=== PATIENT | female | born 1960 | race Caucasian/White ===

== ENCOUNTER 2016-10-20 15:17 | Emergency (ER) | payer OTHER ==
[2016-10-20 15:22] VITALS: BP 113/69; PULSE 68; RESP 16; TEMP 98
[2016-10-20] MEDS ORDERED: TOPICAL SKIN ADHESIVE 1 EACH AMP TOPICAL ONE (15:27)
[2016-10-20] MEDS ORDERED: DIPH,PERTUS(ACELL)TETVAC-LF 0.5 ML VIAL IM ONE (15:27)
--- NOTE | 2016-10-20 15:29 | ED ---
Wound/Laceration HPI - General Chief Complaint: Wound/Laceration Stated Complaint: L hand laceration Time Seen by Provider: 10/20/16 15:22 Source: patient, RN notes reviewed Mode of arrival: ambulatory Limitations: no limitations - History of Present Illness Initial Comments: 56-year-old female presents emergency Department chief complaint of laceration. Patient states she was moving a mandolin and states that she caught the edge of her finger. Patient states that there has been some bleeding but bleeding has stopped. She is unsure last tetanus was. Patient denies any paresthesias no decreased range of motion. - Related Data Previous Rx's Medication Instructions Recorded Amoxicillin 500 mg PO Q8H 10 Days 12/23/14 Allergies Allergy/AdvReac Type Severity Reaction Status Date / Time codeine Allergy Hallucinati Verified 12/23/14 12:11 ons Influenza Virus Vaccines Allergy Rash/Hives Verified 10/20/16 15:22 Review of Systems ROS Statement: Those systems with pertinent positive or pertinent negative responses have been documented in the HPI. ROS Other: All systems not noted in ROS Statement are negative. Past Medical History Past Medical History: Asthma Additional Past Medical History / Comment(s): hypoglycemia, MURMUR DX [email or web address], MILD LACTOSE INTOLERANCE CAN'T DRINK MILK History of Any Multi-Drug Resistant Organisms: None Reported Past Surgical History: Section, Tubal Ligation Additional Past Surgical History / Comment(s): WISDOM TEETH EXTRACTED. Past Anesthesia/Blood Transfusion Reactions: No Reported Reaction Additional Past Anesthesia/Blood Transfusion Reaction / Comment(s): CLAUSTERPHOBIC Past Psychological History: No Psychological Hx Reported Smoking Status: Former smoker Past Alcohol Use History: Rare Past Drug Use History: None Reported - Past Family History Father Family Medical History: Cancer Additional Family Medical History / Comment(s): BRAIN CANCER Mother Family Medical History: Dementia, Diabetes Mellitus, Hypertension Additional Family Medical History / Comment(s): SMALL VESSEL DISEASE. PTS GRANDMOTHER HAD DEMENTIA WELL General Exam Limitations: no limitations General appearance: alert, in no apparent distress Head exam: Present: atraumatic, normocephalic, normal inspection Respiratory exam: Present: normal lung sounds bilaterally. Absent: respiratory distress, wheezes, rales, rhonchi, stridor Cardiovascular Exam: Present: regular rate, normal rhythm, normal heart sounds. Absent: systolic murmur, diastolic murmur, rubs, gallop, clicks Extremities exam: Present: other (Left hand second digit there is a small 0.5 cm superficial laceration no active bleeding noted involvement) Course Vital Signs 10/20/16 15:19 Temperature 98 F Pulse Rate 68 Respiratory 16 Rate Blood Pressure 113/69 O2 Sat by Pulse 97 Oximetry Procedures - Procedures Initial comment: Laceration left hand third digit was thoroughly cleaned with saline, 2 months used to close the superficial laceration. This was wrapped return parameters were discussed. Disposition Clinical Impression: Finger laceration Disposition: HOME SELF-CARE Condition: Stable Instructions: Laceration (ED) Additional Instructions: Please return to the Emergency Department if symptoms worsen or any other concerns. Referrals: Shannan Guerra MD [Primary Care Provider] - 1-2 days Time of Disposition: 15:29
== END 2016-10-20 15:46 | disposition home or self-care (01) ==
LOC: EC 15:17
DX: S61.211A Laceration without foreign body of left index finger without damage to nail, initial encounter (principal); Z23 Encounter for immunization; Z88.5 Allergy status to narcotic agent; Z88.7 Allergy status to serum and vaccine; Z87.891 Personal history of nicotine dependence; W45.8XXA Other foreign body or object entering through skin, initial encounter; Y92.009 Unspecified place in unspecified non-institutional (private) residence as the place of occurrence of the external cause
CPT/HCPCS: 12001; 90471; 90715; 99282

== ENCOUNTER 2021-01-26 13:38 | Emergency (ER) | payer OTHER, MEDICARE ==
[2021-01-26 13:57] VITALS: BP 127/77; PULSE 76; TEMP 98.1
[2021-01-26] MEDS ORDERED: FLUORESCEIN STRIPS 1 MG STRIP RIGHT EYE STA (14:16)
[2021-01-26] MEDS ORDERED: PROPARACAINE 0.5% OPHTH DROPS 15 ML BTL RIGHT EYE STA (14:16)
--- NOTE | 2021-01-26 15:11 | ED ---
General Adult HPI - General Chief complaint: Eye Problems Stated complaint: vision problem Time Seen by Provider: 01/26/21 14:06 Source: patient, RN notes reviewed Mode of arrival: ambulatory Limitations: no limitations - History of Present Illness Initial comments: 60-year-old female with a past medical history of asthma presents to the emergency room for right eye floaters. Patient has had floaters in the right eye for 2 days now. States it started Wednesday when she bent down to put dog food and hit a pole. Patient states she started to see black dots and ribbons. Patient denies any other symptoms. Denies weakness or difficulty speaking or walking.Patient has no other complaints at this time including shortness of breath, chest pain, abdominal pain, nausea or vomiting, headache. - Related Data Previous Rx's Medication Instructions Recorded Amoxicillin 500 mg PO Q8H 10 Days capsule 12/23/14 Allergies Allergy/AdvReac Type Severity Reaction Status Date / Time codeine Allergy Hallucinati Verified 12/23/14 12:11 ons Influenza Virus Vaccines Allergy Rash/Hives Verified 10/20/16 15:22 Review of Systems ROS Statement: Those systems with pertinent positive or pertinent negative responses have been documented in the HPI. ROS Other: All systems not noted in ROS Statement are negative. Past Medical History Past Medical History: Asthma Additional Past Medical History / Comment(s): hypoglycemia, MURMUR DX [email or web address].UTI, MILD LACTOSE INTOLERANCE CAN'T DRINK MILK History of Any Multi-Drug Resistant Organisms: None Reported Past Surgical History: Section, Tubal Ligation Additional Past Surgical History / Comment(s): WISDOM TEETH EXTRACTED. Past Anesthesia/Blood Transfusion Reactions: No Reported Reaction Additional Past Anesthesia/Blood Transfusion Reaction / Comment(s): C LAUSTERPHOBIC Past Psychological History: No Psychological Hx Reported Smoking Status: Former smoker Past Alcohol Use History: Rare Past Drug Use History: None Reported - Past Family History Father Family Medical History: Cancer Additional Family Medical History / Comment(s): BRAIN CANCER Mother Family Medical History: Dementia, Diabetes Mellitus, Hypertension Additional Family Medical History / Comment(s): SMALL VESSEL DISEASE. PTS GRANDMOTHER HAD DEMENTIA WELL General Exam Limitations: no limitations General appearance: alert, in no apparent distress Head exam: Present: atraumatic Eye exam: Present: normal appearance, PERRL, EOMI. Absent: scleral icterus, conjunctival injection, periorbital swelling Expanded Eyelids: Normal Inspection: Bilateral Pupils: Regular, Round: Bilateral Sclera/Conjunctival: Normal Inspection: Bilateral Anterior chamber: Normal Inspection: Bilateral Posterior chamber: Deferred: Left, Normal Inspection: Right Visual acuity (R) = 20/: 30 Visual acuity (L) = 20/: 40 With correction: Yes IOP (R) in mmH IOP (L) in mmH IOP measured with: Tonopen ENT exam: Present: normal exam, mucous membranes moist Neck exam: Present: normal inspection, full ROM. Absent: tenderness Respiratory exam: Present: normal lung sounds bilaterally. Absent: respiratory distress, wheezes Cardiovascular Exam: Present: regular rate, normal rhythm, normal heart sounds Course Vital Signs 01/26/21 13:55 Temperature 98.1 F Pulse Rate 76 Respiratory 17 Rate Blood Pressure 127/77 O2 Sat by Pulse 99 Oximetry Medical Decision Making - Medical Decision Making HPI and physical exam as documented. EOMI and PERRLA. Visual holland intact. Visual acuity is 20/30 OD, 20/40 OS. The eye was stained with fluorescein stain of his nose with the Wood's lamp, no corneal defect. IOP of the right eye is 14 and IOP of the left is 18. I did discuss this case with Dr. Rivera. He would like to see patient tomorrow in the office. Patient will call first thing in the morning. She'll return here for any worsening symptoms. Disposition Clinical Impression: Floaters in visual field Disposition: HOME SELF-CARE Condition: Good Instructions (If sedation given, give patient instructions): Visual Floaters (ED) Additional Instructions: Please follow up with Dr. Schaeffer by calling the office first thing in the morning. If you have any worsening symptoms overnight return to the emergency room. Is patient prescribed a controlled substance at d/c from ED?: No Referrals: Shannan Guerra MD [Primary Care Provider] - 1-2 days Eric Schaeffer MD [STAFF PHYSICIAN] - 1-2 days Time of Disposition: 15:15
[2021-01-26 15:55] VITALS: RESP 18
== END 2021-01-26 15:56 | disposition home or self-care (01) ==
LOC: EC 13:38
DX: H43.391 Other vitreous opacities, right eye (principal); J45.909 Unspecified asthma, uncomplicated; Z88.5 Allergy status to narcotic agent; Z88.7 Allergy status to serum and vaccine; Z98.51 Tubal ligation status; Z87.891 Personal history of nicotine dependence
CPT/HCPCS: 99283

== ENCOUNTER → 2023-05-14 | Outpatient (CLI) | payer MEDICARE, OTHER ==
--- NOTE | 2023-05-18 22:06 | MM ---
Reason for Exam: Screening (asymptomatic). Last mammogram was performed 8 year(s) and 5 month(s) ago. Patient History: Menarche at age 13. First Full-Term at age 24. Postmenopausal. Patient has history of breast feeding. Paternal grandmother had breast cancer, age 60. Risk Values: Brenda 5 year model risk: 1.4%. NCI Lifetime model risk: 7.2%. Prior Study Comparison: 12/19/2004 Bilateral Diagnostic Mammogram, [facility]. 07/16/2005 Bilateral Diagnostic Mammogram, [facility]. 01/09/2010 Bilateral Screening Mammogram, [facility]. 04/06/2012 Bilateral Screening Mammogram, [facility]. 12/12/2014 Bilateral Screening Mammogram, [facility]. Tissue Density: The breast tissue is heterogeneously dense. This may lower the sensitivity of mammography. Findings: Analyzed By CAD. Underlying fluctuating chronic nodularity indicates a benign pattern. There is no suspicious group of microcalcifications or new suspicious mass in either breast. Overall Assessment: Benign, BI-RAD 2 Management: Screening Mammogram of both breasts in 1 year. . Patient should continue monthly self-breast exams. A clinical breast exam by your physician is recommended on an annual basis. This exam should not preclude additional follow-up of suspicious palpable abnormalities. Note on Brenda scores and lifetime risk: 1. A Brenda score greater than 3% is considered moderate risk. If this is the case, consider specialist referral to assess eligibility for a risk reducing agent. 2. If overall lifetime risk for the development of breast cancer is 20% or higher, the patient may qualify for future screening with alternating mammogram and breast MRI. Electronically signed and approved by: Jojo Heart M.D. Radiologist
== END | disposition home or self-care (01) ==
LOC: RADMAMWWP 10:20
PROVIDERS: ATTEND Family Medicine
DX: Z12.31 Encounter for screening mammogram for malignant neoplasm of breast (principal); Z80.3 Family history of malignant neoplasm of breast; Z78.0 Asymptomatic menopausal state
CPT/HCPCS: 77063; 77067

== ENCOUNTER → 2024-06-19 | Outpatient (CLI) | payer MEDICARE, OTHER ==
--- NOTE | 2024-06-19 14:53 | MM ---
Reason for Exam: Screening (asymptomatic). Last mammogram was performed 1 year(s) and 1 month(s) ago. Patient History: Menarche at age 13. First Full-Term at age 24. Postmenopausal. Patient has history of breast feeding. Paternal grandmother had breast cancer, age 60. Risk Values: Brenda 5 year model risk: 1.5%. NCI Lifetime model risk: 6.8%. Prior Study Comparison: 04/06/2012 Bilateral Screening Mammogram, [facility]. 12/12/2014 Bilateral Screening Mammogram, [facility]. 05/14/2023 Bilateral MG 3D screening mammo w/cad, [facility]. Tissue Density: The breasts are heterogeneously dense, which may obscure small masses. Findings: Analyzed By CAD. Bilateral stable nodules. There are bilateral increased or new nodules. Benign-appearing calcification. Overall Assessment: Incomplete: need additional imaging evaluation, BI-RAD 0 Management: Diagnostic Breast Ultrasound of both breasts. . Patient should continue monthly self-breast exams. A clinical breast exam by your physician is recommended on an annual basis. This exam should not preclude additional follow-up of suspicious palpable abnormalities. Note on Brenda scores and lifetime risk: 1. A Brenda score greater than 3% is considered moderate risk. If this is the case, consider specialist referral to assess eligibility for a risk reducing agent. 2. If overall lifetime risk for the development of breast cancer is 20% or higher, the patient may qualify for future screening with alternating mammogram and breast MRI. [facility], , 06/19/2024 2:49 PM. Electronically signed and approved by: Livan Loomis M.D. Radiologis
== END | disposition home or self-care (01) ==
LOC: RADMAMWWP 14:19
PROVIDERS: ATTEND Family Medicine
DX: Z12.31 Encounter for screening mammogram for malignant neoplasm of breast (principal); R92.333 Mammographic heterogeneous density, bilateral breasts; Z78.0 Asymptomatic menopausal state; Z80.3 Family history of malignant neoplasm of breast
CPT/HCPCS: 77063; 77067

== ENCOUNTER → 2024-06-19 | Outpatient (CLI) | payer MEDICARE, OTHER ==
--- NOTE | 2024-06-19 14:28 | CT ---
EXAMINATION TYPE: CT brain wo con CT DLP: 1064.30 mGycm, Automated exposure control for dose reduction was used. DATE OF EXAM: 06/19/2024 2:02 PM COMPARISON: None. CLINICAL INDICATION:Female, 64 years old with history of H93.13 TINNITUS, BILATERAL, BILATERAL TINNIT US TECHNIQUE: Brain: Multiple axial CT images of the brain were obtained without IV contrast. . Coronal and sagitta l reformats reviewed. FINDINGS: Brain: Extra-axial spaces: No abnormal extra-axial fluid collections. Ventricular system: Within normal limits Cerebral parenchyma: No acute intraparenchymal hemorrhage or mass effect. The jay-white junction is well differentiated. Cerebellum: Unremarkable. Mass effect: No evidence of midline shift. Intracranial vasculature: unremarkable Soft tissues: Normal. Calvarium/osseous structures: No depressed skull fracture. Paranasal sinuses and mastoid air cells: Clear. The external and internal auditory canals appear unre markable. The middle ears are nonopacified. No obvious abnormality. Visualized orbits: Orbital contents are intact. IMPRESSION: No acute intracranial process. [facility], , 06/19/2024 2:25 PM
== END | disposition home or self-care (01) ==
LOC: RADCTMAIN 13:04
PROVIDERS: ATTEND Family Medicine
DX: H93.13 Tinnitus, bilateral (principal)
CPT/HCPCS: 70450

== ENCOUNTER → 2024-06-22 | Outpatient (CLI) | payer MEDICARE, OTHER ==
--- NOTE | 2024-06-22 13:57 | CT ---
EXAMINATION TYPE: CT iac wo con DATE OF EXAM: 06/22/2024 COMPARISON: None CLINICAL INDICATION: Female, 64 years old with history of H93.13 tinnitus; PHH, TINNITUS TECHNIQUE: CT scan of internal auditory canal is performed without contrast, thin cut axial images ar e obtained, coronal reformatted images are also reviewed. CT DLP: [address] CTDI: mGy Automated exposure control for dose reduction was used. FINDINGS: The external auditory canals are patent bilaterally. Mastoid air cells show no evidence of abnormal opacification bilaterally. The middle ear ossicles are symmetric and unremarkable. There is no evidence of suspicious surrounding soft tissue density to suggest cholesteatoma. The scutum is preserved bilaterally. The cochlea and the semicircular canals are symmetric and unremarkable. Ves tibular aqueduct and internal carotid canal appear unremarkable. Temporomandibular joints are maintained bilaterally. Visualized paranasal sinuses are grossly clear. Visualized portion brain parenchyma is felt within normal limits. IMPRESSION: No significant abnormality seen to account for patient's symptoms. [facility], Workstation: [id number] 06/22/2024 1:54 PM
== END | disposition home or self-care (01) ==
LOC: RADCTMAIN 12:36
PROVIDERS: ATTEND Family Medicine
DX: H93.13 Tinnitus, bilateral (principal)
CPT/HCPCS: 70480

== ENCOUNTER → 2024-06-23 | Outpatient (CLI) | payer MEDICARE, OTHER ==
--- NOTE | 2024-06-26 14:17 | USB ---
Reason for Exam: Additional evaluation requested from abnormal screening. Patient History: Menarche at age 13. First Full-Term at age 24. Postmenopausal. Patient has history of breast feeding. Paternal grandmother had breast cancer, age 60. Risk Values: Brenda 5 year model risk: 1.5%. NCI Lifetime model risk: 6.8%. Technique: Method: Whole Breast Handheld. Prior Study Comparison: 12/12/2014 Bilateral Screening Mammogram, [facility]. 05/14/2023 Bilateral MG 3D screening mammo w/cad, [facility]. 06/19/2024 Bilateral MG 3D screening mammo w/cad, [facility]. Findings: The whole breast of both breasts, the axilla of both breasts and the retroareolar of both breasts were scanned. A complete US of all four quadrants of the bilateral breast and retro-areolar region were reviewed. No solid or cystic masses are identified.. At the 1:00 position right breast there is an 8mm irregular lobulated. There are multiple bilateral simple appearing cysts. There is a complicated cyst at the 3:00 position and 7:00 left breast. Overall Assessment: Suspicious, BI-RAD 4 Management: Ultrasound Core Biopsy of both breasts. A clinical breast exam by your physician is recommended on an annual basis and results should be correlated with mammographic findings. This exam should not preclude additional follow-up of suspicious palpable abnormalities. Results were given to the patient verbally at the time of exam. [facility], , 06/23/2024 1:34 PM. Electronically signed and approved by: Livan Loomis M.D. Radiologis
== END | disposition home or self-care (01) ==
LOC: RADUSWWP 12:36
PROVIDERS: ATTEND Family Medicine
DX: R92.8 Other abnormal and inconclusive findings on diagnostic imaging of breast (principal); Z78.0 Asymptomatic menopausal state; Z80.3 Family history of malignant neoplasm of breast

== ENCOUNTER → 2024-07-10 | Day surgery (SDC) | payer MEDICARE, OTHER ==
--- NOTE | 2024-07-14 12:26 | MM ---
Reason for Exam: Post Procedure Mammogram. Last screening mammogram was performed less than 1 month ago. Patient History: Menarche at age 13. First Full-Term at age 24. Postmenopausal. Patient has history of breast feeding. Paternal grandmother had breast cancer, age 60. Risk Values: Brenda 5 year model risk: 1.5%. NCI Lifetime model risk: 6.8%. Prior Study Comparison: 12/12/2014 Bilateral Screening Mammogram, [facility]. 05/14/2023 Bilateral MG 3D screening mammo w/cad, [facility]. 06/19/2024 Bilateral MG 3D screening mammo w/cad, [facility]. 06/23/2024 Bilateral US breast workup [facility], [facility]. Tissue Density: The breasts are heterogeneously dense, which may obscure small masses. Pathology Description: Location: 3 o'clock. Marker Left Behind. Needle Type: Mammotome Cores: 4 Gauge: 13 Pathology Description: Location: 1 o'clock. Marker Left Behind. Needle Type: Mammotome Cores: 4 Gauge: 13 The procedure of ultrasound guided core biopsy was explained to the patient. Benefits, alternatives, and risks were discussed. An informed consent was then obtained. The patient was placed in supine positioning for imaging and for the procedure. Preprocedure ultrasound redemonstrates a slightly hypoechoic ill-defined lesion near the 6 to 7 mm at 1:00 position 3 cm distance from the nipple in the right breast and a larger round circumscribed near 1.1 cm lesion at 3:00 position 1 cm distance from nipple in the left breast. The overlying skin was prepped and draped in usual sterile fashion. Lidocaine buffered with bicarbonate was used as anesthetic into the skin and subcutaneous tissue up to area of concern in in the bilateral breasts. Under ultrasound guidance, a vacuum assisted biopsy gun device was used to obtain 4 core samples bilaterally. Following this, a biopsy clip was left in each lesion. The patient tolerated the procedure well without any immediate complication. The patient was kept in the radiology department for short stay after the procedure and then discharged home in stable condition. Postprocedure mammogram: The patient was transferred to mammography for physician ordered post procedure mammogram for clip placement verification. This report is dictated separately. Impression: Successful, uncomplicated ultrasound guided core biopsy of areas of concern in the bilateral breasts, full pathology results to follow. Low to intermediate index of suspicion of procedure. [facility], , 07/10/2024 6:06 PM. Pathology Results: Result: Benign, Fibrocystic change. Pathology and radiology were reviewed. Findings are concordant. A. RIGHT BREAST, 1:00, NEEDLE CORE BIOPSY: Benign breast with fibrocystic changes. B. LEFT BREAST, 3:00, NEEDLE CORE BIOPSY: Benign breast with fibrocystic changes including calcifications. Overall Assessment: Benign Assessment: MG diagnostic mammo BI wo CAD - Bilateral: Benign, BI-RAD 2. Management: Diagnostic Breast Ultrasound of both breasts in 6 months. Electronically signed and approved by: Eric Shore M.D.
== END ==
LOC: RADUSWWP 12:03
PROVIDERS: ATTEND Family Medicine
DX: N60.12 Diffuse cystic mastopathy of left breast (principal); N60.11 Diffuse cystic mastopathy of right breast; Z80.3 Family history of malignant neoplasm of breast; Z78.0 Asymptomatic menopausal state
CPT/HCPCS: 88305; 77066; 19083; 19084; A4648

== ENCOUNTER → 2024-08-17 | Outpatient (CLI) | payer MEDICARE, OTHER ==
--- NOTE | 2024-08-18 16:49 | MR ---
EXAMINATION TYPE: MR brain and iac wo/w con DATE OF EXAM: 08/17/2024 10:04 PM COMPARISON: CT IAC 06/22/2024, CT brain 06/19/2024 CLINICAL INDICATION: Female, 64 years old with history of UNSPECIFIED SENSORINEURAL HEARING LOSE, Sli ght Left sided hearing loss, left sided Tinnitus IV Contrast: 8 cc Gadobutrol TECHNIQUE: Multi planar, multi sequence imaging was performed through the brain. Specialized thin s equences were obtained through the internal auditory canals. Pre-and post gadolinium sequences were obtained as well after administration of 8 cc of Gadobutrol. FINDINGS: The jay-white junctions, ventricular system, basal cisterns appear unremarkable. Age-fernandez ropriate cerebral parenchymal volume. Diffusion-weighted imaging shows no evidence of restricted diff usion. Patchy areas of high T2/FLAIR signal intensity are seen within the periventricular and subcor tical white matter. The susceptibility weighted images do not reveal any evidence for micro-hemorrha ge. After administration of gadolinium, no abnormal enhancement is seen. The bone marrow signal is within normal limits. The globes are unremarkable. Mild mucosal thickening of the ethmoid sinuses. Minimal mucosal thickening of the inferior right maxillary sinus. Left infer ior maxillary sinus 1.2 cm T2 hyperintense mucous retention cyst. The internal auditory canal sequences demonstrate no significant irregularity. The 7th cranial nerve s, 8 cranial nerves, and cerebellar pontine angles appear unremarkable. After the administration selene olinium, no abnormal enhancement is seen within the internal auditory canals. IMPRESSION: 1. No evidence of intracranial mass nor acute/subacute CVA. 2. No evidence of internal auditory canal abnormality. 3. Nonspecific mild white matter changes, likely secondary to small vessel ischemic disease. [facility], , 08/18/2024 4:47 PM
== END | disposition home or self-care (01) ==
LOC: RADMRIMAIN 20:35
PROVIDERS: ATTEND Otolaryngology
DX: H90.5 Unspecified sensorineural hearing loss (principal); R90.82 White matter disease, unspecified
CPT/HCPCS: 70553; A9585

== ENCOUNTER → 2024-10-05 | Outpatient (CLI) | payer MEDICARE, OTHER ==
[2024-10-05 12:52] VITALS: BP 148/85; PULSE 65; RESP 18; TEMP 97.7
--- NOTE | 2024-10-05 13:06 | P.GSCN ---
History of Present Illness Consult date: 10/05/24 Reason for Consult: breast biopsy bilateral Requesting physician: Shannan Guerra History of present illness: Isabel is a 64 year old female seen in consultation for Dr. Guerra regarding bilateral breast biopsies. She had a bilateral mammogram on 06-19-24 which was BIRAD 0 and bilateral breast ultrasounds were recommended. These were done on 06-23-24, and ultrasound core biopsy of both breast were recommended. The biopsies were done on 07-10-24 and the results of both sides benign breast with fibrocystic changes. At the 1:00 right breast and in the 3:00 location left breast. This was felt to be benign concordant and repeat bilateral breast ultrasound in 6 months was recommended. This was personally reviewed and interpreted. She is not complaining of any new lumps masses or nodules of concern in either breast. She is not complaining of any nipple discharge or skin changes. She has not had any recent trauma or infection in her breast. She tolerated the bilateral breast biopsies without difficulty. chocolate: occasional nicotine: stopped in 1990 hormones: none 5 year risk: 1.5% lifetime risk: 6.8% Note 06-09-24 Dr. Guerra reviewed Family history: Paternal grandmother: Breast cancer Paternal great aunt leukemia Hormonal history: Menarche: 13 age at first : 24, breast fed: yes Menopause:52 Surgical history: Tumor removed behind left ear Medical history: Hypoglycemia Arthritis Social history: Nicotine: stopped in 1990, used to smoke 1/2 PPD alcohol: occasional drugs: none Review of Systems - Constitutional Denies fever, Denies weight loss - EENT Eyes: denies blurred vision Ears: left: decreased hearing, tinnitus Ears, nose, mouth and throat: Denies dysphagia - Breasts bilateral: as per HPI - Cardiovascular Denies chest pain, Denies shortness of breath - Respiratory Denies cough, Denies 7 - Gastrointestinal Reports as per HPI - Genitourinary Genitourinary: Denies dysuria, Denies hematuria Menstruation: Reports as per HPI - Musculoskeletal Reports as per HPI - Integumentary Denies rash, Denies unusual bruising - Neurological Denies headaches, Denies syncope - Psychiatric Reports as per HPI - Endocrine Reports as per HPI - Hematologic/Lymphatic Denies easy bleeding, Denies easy bruising - Allergic/Immunologic Reports as per HPI, Reports seasonal allergies Past Medical History Past Medical History: Asthma Additional Past Medical History / Comment(s): hypoglycemia, [employer] DX TEENAGER. MILD LACTOSE INTOLERANCE CAN'T DRINK MILK History of Any Multi-Drug Resistant Organisms: None Reported Past Surgical History: Section, Tubal Ligation Additional Past Surgical History / Comment(s): WISDOM TEETH EXTRACTED. left ear mass removed, benign Past Anesthesia/Blood Transfusion Reactions: No Reported Reaction Additional Past Anesthesia/Blood Transfusion Reaction / Comm: CLAUSTERPHOBIC Past Psychological History: No Psychological Hx Reported Smoking Status: Former smoker Past Alcohol Use History: Occasional Additional Past Alcohol Use History / Comment(s): STARTED SMOKING AT AGE 14 LESS THAN 1 PPD QUIT 1990 Past Drug Use History: None Reported - Past Family History Father Family Medical History: Cancer Additional Family Medical History / Comment(s): BRAIN CANCER Mother Family Medical History: Dementia, Diabetes Mellitus, Hypertension Additional Family Medical History / Comment(s): SMALL VESSEL DISEASE. PTS GRANDMOTHER HAD DEMENTIA WELL Medications and Allergies Home Medications Medication Instructions Recorded Confirmed Type Loratadine [Claritin] 10 mg PO DAILY 06/26/24 06/26/24 History Allergies Allergy/AdvReac Type Severity Reaction Status Date / Time codeine Allergy Hallucinati Verified 10/05/24 12:49 ons Influenza Virus Vaccines Allergy Rash/Hives Verified 10/05/24 12:49 lactose Allergy Nausea & Verified 10/05/24 12:49 Vomiting Surgical - Exam - General no distress - Eyes normal ocular movement - Neck trachea midline - Respiratory normal respiratory effort, clear to auscultation - Cardiovascular Rhythm: regular Heart Sounds: normal: S1, S2 - Abdomen Abdomen: soft, non tender, no guarding, no rigid, no rebound - Integumentary normal turgor - Neurologic no disoriented, no combative - Musculoskeletal normal gait - Psychiatric oriented to time, oriented to person, oriented to place, speech is normal, memory intact Breast Exam: BRA: 38C inspection: Bilateral grade 2 ptosis Palpation: Right breast: Multi positional exam fibrocystic changes no dominant masses or nodules of concern Right axilla: No adenopathy of concern Left breast: Multi positional exam no dominant masses or nodules of concern Left axilla: No adenopathy of concern Results Mammogram and ultrasound personally reviewed Assessment and Plan Assessment: Impression: Fibrocystic breast changes Plan: Repeat bilateral ultrasound of the breast in December 2024 with physician exam at that time At this time there is nothing on physical examination or radiographically which would warrant interventional biopsy CC: Dr. Guerra
== END ==
LOC: WWCWWP 12:30
PROVIDERS: ATTEND Surgery
DX: N60.19 Diffuse cystic mastopathy of unspecified breast (principal); Z88.7 Allergy status to serum and vaccine; Z88.5 Allergy status to narcotic agent; Z91.011 Allergy to milk products; Z87.891 Personal history of nicotine dependence